=== PATIENT | female | born 1965 | race Caucasian/White ===

== ENCOUNTER 2019-12-22 01:13 | Outpatient (CLI) | payer OTHER, SELFPAY ==
[2019-12-22 19:58] LABS: SARS-CoV-2 RNA PCR Negative
== END 2019-12-22 01:14 | disposition home or self-care (01) ==
LOC: ANHCOVIDDT 01:13
PROVIDERS: Visit Provider Internal Medicine Gastroenterology
DX: Z01.812 Encounter for preprocedural laboratory examination (principal); Z20.828 Contact with and (suspected) exposure to other viral communicable diseases
CPT/HCPCS: 87635; C9803; U0003

== ENCOUNTER 2019-12-24 03:36 | Day surgery (SDC) | payer OTHER, SELFPAY ==
[2019-12-18 10:09] VITALS: BMI 30.4
[2019-12-24 11:00] VITALS: BP 151/106; PULSE 72; RESP 16; TEMP 36.8; O2SAT 100
[2019-12-24] MEDS: LACTATED RINGERS 1,000 ML 150 ML IV CONT (11:02)
--- NOTE | 2019-12-24 11:18 | WPDANESEPPF ---
Anes - Initial Pre Proc Eval Procedure: Operation Date: 12/24/19 12:00 Proposed Procedures p Colonoscopy - Cristobal Saravia DO Date/Time: 12/24/19 11:18 Surgeon: Cristobal Saravia DO Pre Op Diagnosis: Enterocolitis Patient Data Age: 54 Gender: F Height: 5 ft 7 in Weight: 84.1 kg Last Vital Signs Temp 36.8 C 12/24/19 11:00 Pulse 72 12/24/19 11:00 Resp 16 12/24/19 11:00 BP 151/106 H 12/24/19 11:00 Pulse Ox 100 12/24/19 11:00 Allergies Allergy/AdvReac Type Severity Reaction Status Date / Time lisinopril Allergy Intermediate Swelling Verified 12/24/19 10:56 Penicillins Allergy Mild Hives Verified 12/24/19 10:56 Home Medications Medication Instructions Recorded Confirmed Type conjugated estrogens [Premarin] 1.25 mg PO DAILY 12/18/19 12/18/19 History hydrocodone-acetaminophen 1 tablet PO DAILY PRN 12/18/19 12/18/19 History loratadine [Claritin] 10 mg PO DAILY 12/18/19 12/18/19 History metoprolol succinate 50 mg PO HS 12/18/19 12/18/19 History Patient hx anesthesia problems: none Family hx anesthesia problems: none [facility] Social History Social History Smoking status: Never smoker Alcohol intake: current Drinks per week: 1 Substance use: never Substance use type: does not use Living arrangements: with family Spiritual care concerns: No Anes - Eval Final PreProcedure Day of Procedure 12/24/19 11:18 Patient weight: overweight Heart: regular rate and rhythm Lungs: clear to auscultation Airway: Mallampati scale class II Neurological: alert and oriented Last oral intake: >/= 8 hours ASA classification: II Emergent: no Anesthetic plan: proceed Anesthesia type and monitoring: general GIVS and standard monitoring Informed Consent: The patient's anesthetic plan and its attendant risks and benefits were discussed with the patient/family/POA. Questions were solicited and answers provided to the satisfaction of the patient/family/POA.
--- NOTE | 2019-12-24 12:34 | PM.IMHP ---
H&P: HPI History of Present Illness Date/Time: 12/24/19 12:34 Chief complaint: Enterocolitis Narrative: Reason for visit is colonoscopy. This very pleasant lady seen in consultation at the request of the primary physician. The patient was examined. Impression: He with very pleasantly with abdominal pain, cramping and abnormal imaging revealing possible enterocolitis. She is here for colonoscopy assess feeling inflammatory neoplastic disease. HTN. Recommendation: Colonoscopy. History: This very pleasant lady began having moderately severe lower abdominal cramping. She was having diarrhea with black stools. She denied any fever or chills. Nausea, vomiting hematemesis or tonight. She presented to the emergency room and was noted to have under colitis. I do not have the imaging studies for review. The patient was given antibiotics therapy. The antibiotics did not really seem to help. She was given short course of steroids which improved her symptoms considerably. She is here for colonoscopy to assess from inflammatory neoplastic disease. Physical examination: General: very pleasant patient in no acute distress. HEENT: Head was normocephalic sclerae is clear mouth without masses neck was supple. Heart: Rate rhythm regular without S3 or S4. Lungs: CTA. Abdomen: Soft with no guarding or rigidity. Bowel sounds were active. Neurologic: Cranial nerves 2 through 12 intact. No focal defects. No clonus. Musculoskeletal system: Revealed no joint tenderness or swelling no muscle atrophy. Extremities: Reveal no significant edema. Skin: Warm and dry with normal turgor. Mental status: intact. Patient is alert and oriented. Review of Systems Review of Systems: All systems reviewed & are unremarkable except as noted in HPI and below PMFSH Social History Social History Smoking status: Never smoker Alcohol intake: current Drinks per week: 1 Substance use: never Substance use type: does not use Living arrangements: with family Spiritual care concerns: No Meds Home Medications and Allergies Home Medications Medication Instructions Recorded Confirmed Type conjugated estrogens [Premarin] 1.25 mg PO DAILY 12/18/19 12/18/19 History hydrocodone-acetaminophen 1 tablet PO DAILY PRN 12/18/19 12/18/19 History loratadine [Claritin] 10 mg PO DAILY 12/18/19 12/18/19 History metoprolol succinate 50 mg PO HS 12/18/19 12/18/19 History Allergies Allergy/AdvReac Type Severity Reaction Status Date / Time lisinopril Allergy Intermediate Swelling Verified 12/24/19 10:56 Penicillins Allergy Mild Hives Verified 12/24/19 10:56 Vital Signs Vital Signs - 24 hr 12/24/19 11:00 Temperature 36.8 C Pulse Rate 72 Respiratory Rate 16 Blood Pressure 151/106 H Pulse Oximetry 100
[2019-12-24 13:03] VITALS: BP 132/85; PULSE 75; RESP 21; O2SAT 100
[2019-12-24 13:13] VITALS: BP 123/88; PULSE 71; RESP 20; O2SAT 100
[2019-12-24 13:23] VITALS: BP 129/78; PULSE 61; RESP 19; O2SAT 100
== END 2019-12-24 13:31 | disposition home or self-care (01) ==
PROVIDERS: PCP Nurse Practitioner; Visit Provider Internal Medicine Gastroenterology
PROC: 0DJD8ZZ Inspection of Lower Intestinal Tract, Via Natural or Artificial Opening Endoscopic (ICD-10-PCS; CPT 45378; principal; 2019-12-24 12:00)
DX: R10.30 Lower abdominal pain, unspecified (principal); R19.7 Diarrhea, unspecified; K57.30 Diverticulosis of large intestine without perforation or abscess without bleeding; K64.8 Other hemorrhoids; I10 Essential (primary) hypertension
CPT/HCPCS: 45380; 88305; J7120